=== PATIENT | female | born 1970 | race Caucasian/White ===

== ENCOUNTER → 2020-03-01 | Outpatient (CLI) | payer OTHER | LOC: MAMMO 12:22 | PROVIDERS: ATTEND Obstetrics & Gynecology | DX: Z12.31 Encounter for screening mammogram for malignant neoplasm of breast (principal) | CPT/HCPCS: 77067 ==

== ENCOUNTER → 2020-03-23 | Outpatient (CLI) | payer OTHER ==
--- NOTE | 2020-03-24 08:49 | Diagnostic Imaging Report ---
#[id number] - MGDXLT #UNILATERAL LEFT DIGITAL DIAGNOSTIC MAMMOGRAM WITH SPOT COMPRESSION AND MAGNIFICATION: 03/23/2020 Comparison is made to exam dated: 03/01/2020 mammogram - [facility]. The tissue of the left breast is heterogeneously dense. This may lower the sensitivity of mammography. There is an asymmetry in the left breast at 1 o'clock anterior depth. No other significant masses or calcifications are seen in the breast. IMPRESSION: INCOMPLETE: NEEDS ADDITIONAL IMAGING EVALUATION The asymmetry in the left breast is indeterminate. An ultrasound is recommended and will be performed during the same visit. ISABELL SOTO M.D. kw/:03/23/2020 16:05:18 Actuarial Science Professor: Jacklyn MORENO(R)(M), [facility] Mammogram BI-RADS: 0 Indeterminate
--- NOTE | 2020-03-24 08:49 | Diagnostic Imaging Report ---
#[id number] - USBRELIMLT ULTRASOUND OF THE LEFT BREAST : 03/23/2020 Comparison is made to exams dated: 03/23/2020 mammogram and 03/01/2020 mammogram - [facility] [place]. Color flow and real-time ultrasound were performed on the left breast. Garcia scale images of the real-time examination were reviewed. No abnormalities were seen sonographically in the left breast. IMPRESSION: NEGATIVE There is no sonographic evidence of malignancy. Return to annual mammogram screening schedule is recommended. ISABELL hanna/pengaye:03/23/2020 16:06:21 Vp Outcomes: [facility], [facility] letter sent: Normal Exam Ultrasound BI-RADS: 1 Negative
== END ==
LOC: MAMMO 12:45
PROVIDERS: ATTEND Obstetrics & Gynecology
DX: N64.89 Other specified disorders of breast (principal); R92.1 Mammographic calcification found on diagnostic imaging of breast

== ENCOUNTER 2020-06-25 08:49 | Observation (INO) | payer OTHER ==
[~2020-06-25] VITALS: Ht 152.4 cm; Wt 60.4 kg
[2020-06-25] MEDS ORDERED: SODIUM CHLORIDE 0.9% 1000ML 1,000 ML IV STA (09:06)
[2020-06-25 09:25] LABS: ABG HCO3 23 mmol/L (22-26); ABG PCO2 38 mmHg (35-45); ABG PH 7.39 (7.35-7.45); ABG PO2 102 mmHg (80-105); ABG TCO2 24
[2020-06-25 09:36] LABS: BASOPHILS % 0.6 % (0.0-1.0); EOSINOPHILS # (AUTO) 0.1 (0.0-0.4); HEMATOCRIT 39.5 % (34.2-44.1); HEMOGLOBIN 13.1 g/dL (12.0-16.0); LYMPHOCYTES # (AUTO) 1.6 (1.0-3.2); LYMPHOCYTES % 23.2 % (18.0-39.1); MEAN CORPUSCULAR HGB CONC 33.2 g/dL (31-35); MEAN CORPUSCULAR VOLUME 96.3 fL (81-99); MONOCYTES # (AUTO) 0.5 (0.2-0.8); MONOCYTES % 7.8 % (4.4-11.3); NEUTROPHILS # (AUTO) 4.6 (2.1-6.9); NEUTROPHILS % 67.3 % (38.7-80.0); PLATELET COUNT 203 x10e3/uL (140-360); RED CELL DISTRIBUTION WIDTH 12.8 % (11.7-14.4)
[2020-06-25 09:42] LABS: BILIRUBIN,URINE NEGATIVE (NEGATIVE); CLARITY,URINE CLEAR (CLEAR); COLOR,URINE YELLOW (YELLOW); KETONES,URINE NEGATIVE (NEGATIVE); LEUKOCYTE ESTERASE ,URINE TRACE (NEGATIVE); NITRITE,URINE NEGATIVE (NEGATIVE); PROTEIN,URINE DIPSTICK NEGATIVE (NEGATIVE); URINE UROBILINOGEN 0.2 mg/dL (0.2 - 1)
[2020-06-25 09:50] LABS: BACTERIA,URINE MANY /HPF; EPITHELIAL CELLS,URINE MODERATE /LPF; RBC,URINE 0-5 /HPF (0-5); WBC,URINE (MAN) 0-5 /HPF (0-5)
[2020-06-25 09:54] LABS: ALANINE AMINOTRANSFERASE 14 IU/L (0-55); ALBUMIN 4.3 g/dL (3.5-5.0); ALBUMIN/GLOBULIN RATIO 1.6 (0.8-2.0); ALKALINE PHOSPHATASE 69 IU/L (40-150); ANION GAP 13.8 mmol/L (8-16); BLOOD UREA NITROGEN 11 mg/dL (7-26); BUN/CREATININE RATIO 14 (6-25); CALCIUM 9.3 mg/dL (8.4-10.2); CARBON DIOXIDE 25 mmol/L (22-29); CHLORIDE 106 mmol/L (98-107); CREATINE KINASE 123 IU/L (29-168); CREATININE, SERUM 0.81 mg/dL (0.57-1.11); EST GLOMERULAR FILTRATION RATE > 60 ML/MIN (60-); GLUCOSE 93 mg/dL (74-118); POTASSIUM 3.8 mmol/L (3.5-5.1); SODIUM 141 mmol/L (136-145)
[2020-06-25 09:56] LABS: PROTHROMBIN TIME 13.7 seconds (11.9-14.5)
[2020-06-25 09:57] LABS: PARTIAL THROMBOPLASTIN TIME 29.4 seconds (23.8-35.5)
[2020-06-25] MEDS ORDERED: SODIUM CHLORIDE 0.9% 1000ML 1,000 ML IV SCH (11:00)
[2020-06-25] MEDS ORDERED: CLONAZEPAM0.5 MG PO (11:37)
[2020-06-25] MEDS ORDERED: CRESTOR10 MG PO (11:37)
[2020-06-25] MEDS ORDERED: LEXAPRO5 MG PO (11:37)
[2020-06-25 12:21] VITALS: BP 112/69
[2020-06-25 12:44] VITALS: BP 112/69
[2020-06-25 12:53] VITALS: BP 112/69
[2020-06-25 16:24] VITALS: BP 104/65
== END 2020-06-25 18:00 | disposition home or self-care (01) ==
LOC: ER 08:55 → ERHOLD 11:00 → MED/SURG2 12:34
PROVIDERS: ADMIT Internal Medicine Critical Care Medicine; ATTEND Internal Medicine Critical Care Medicine
DX: T59.91XA Toxic effect of unspecified gases, fumes and vapors, accidental (unintentional), initial encounter (principal); J68.0 Bronchitis and pneumonitis due to chemicals, gases, fumes and vapors; Y92.69 Other specified industrial and construction area as the place of occurrence of the external cause; E78.00 Pure hypercholesterolemia, unspecified; Z57.5 Occupational exposure to toxic agents in other industries; Z11.59 Encounter for screening for other viral diseases
CPT/HCPCS: 36415; 36600; 71045; 80053; 81001; 82550; 82553; 82805; 83874; 83880; 84484; 85025; 85610; 85730; 93005; 99284; G0378; J7030; U0002